=== PATIENT | male | born 1980 | race Caucasian/White ===

== ENCOUNTER → 2018-09-07 | Outpatient (CLI) | payer OTHER ==
[2018-09-07 06:51] LABS: ALANINE AMINOTRANSFERASE 52 U/L (12-78); ANION GAP 6 mmol/L (5-15); CALCIUM 8.5 mg/dL (8.5-10.1); CHLORIDE 108 mmol/L (98-107); CHOLESTEROL, TOTAL 220 mg/dL (140-239); CREATININE 1.14 mg/dL (0.7-1.3)
[2018-09-07 07:02] LABS: ALKALINE PHOSPHATASE 82 U/L (45-117); BILIRUBIN,TOTAL 0.7 mg/dL (0.2-1.0); CHOL/HDL RATIO 5.8; HDL CHOL % 17 % (26-37); HDL CHOLESTEROL (DIRECT) 38 mg/dL (40-60); LDL CHOLESTEROL,CALCULATED 153 mg/dL (54-169); TOTAL PROTEIN 7.4 g/dL (6.4-8.2); TRIGLYCERIDES 145 mg/dL (50-200); VLDL CHOLESTEROL 29 mg/dL (0-25)
== END | disposition home or self-care (01) ==
LOC: LAB 06:18
PROVIDERS: ATTEND Family Medicine
DX: E66.01 Morbid (severe) obesity due to excess calories (principal)
CPT/HCPCS: 36415; 80053; 80061; 84443

== ENCOUNTER → 2018-09-12 | Outpatient (CLI) | payer OTHER | END | disposition home or self-care (01) | LOC: RAD 12:00 | PROVIDERS: ATTEND Family Medicine | DX: M25.572 Pain in left ankle and joints of left foot (principal) ==

== ENCOUNTER 2018-11-15 11:33 | Emergency (ER) | payer OTHER ==
[~2018-11-15] VITALS: Ht 188 cm; Wt 165.3 kg
[2018-11-15 11:59] VITALS: BP 142/81
== END 2018-11-15 13:43 | disposition home or self-care (01) ==
LOC: ED 13:37
DX: R42 Dizziness and giddiness (principal); K21.9 Gastro-esophageal reflux disease without esophagitis
CPT/HCPCS: 36415; 71045; 80048; 82040; 84484; 85025; 93005; 99284

== ENCOUNTER 2019-07-20 01:35 | Emergency (ER) | payer OTHER ==
[~2019-07-20] VITALS: Ht 188 cm; Wt 171.8 kg
[2019-07-20 01:38] VITALS: BP 152/92
--- NOTE | 2019-07-20 01:56 | NUR ---
pt ambulates from triage to room with steady gait. dr. castro at for pt history and assessment.
[2019-07-20 02:22] LABS: BASOPHILS # (AUTO) 0.04 x10^3/uL (0-0.1); BASOPHILS % (AUTO) 1 % (0-1); EOSINOPHILS # (AUTO) 0.25 x10^3/uL (0-0.4); EOSINOPHILS % (AUTO) 3 % (1-7); LYMPHOCYTES # (AUTO) 3.03 x10^3/uL (1-3.4); LYMPHOCYTES % (AUTO) 35 % (22-44); MD NO; MEAN CORPUSCULAR HEMOGLOBIN 30.2 pg (27.5-34.5); MEAN CORPUSCULAR VOLUME 91.4 fL (81-97); MEAN PLATELET VOLUME 9.8 fL (7.4-10.4); MONOCYTES # (AUTO) 0.82 x10^3/uL (0.2-0.8); MONOCYTES % (AUTO) 10 % (2-9); NEUTROPHILS % (AUTO) 52 % (42-75); PLATELET COUNT 251 x10^3/uL (130-400); RED BLOOD COUNT 5.07 x10^6/uL (4.38-5.82)
[2019-07-20 02:36] LABS: ALANINE AMINOTRANSFERASE 59 U/L (12-78); ALBUMIN 3.8 g/dL (3.4-5.0); ANION GAP 7 mmol/L (5-15); CALCIUM 8.8 mg/dL (8.5-10.1); CHLORIDE 106 mmol/L (98-107); CREATININE 1.21 mg/dL (0.7-1.3)
[2019-07-20 02:40] LABS: ALKALINE PHOSPHATASE 92 U/L (45-117); BILIRUBIN,TOTAL 0.3 mg/dL (0.2-1.0); TOTAL PROTEIN 7.6 g/dL (6.4-8.2); TROPONIN I < 0.015 ng/mL (0.000-0.045)
--- NOTE | 2019-07-20 03:13 | NUR ---
pt d/c with d/c summary and work note. pt verbalizes understanding of f/u instructions and homecare. pt denies any other needs pertaining to this visit. pt ambulates to registration desk with steady gait for d/c home.
[2019-07-20] MEDS ORDERED: FAMO40TA61 PO (10:28)
== END 2019-07-20 03:15 ==
LOC: ED 02:50
DX: R07.89 Other chest pain (principal); R00.2 Palpitations; K21.9 Gastro-esophageal reflux disease without esophagitis
CPT/HCPCS: 36415; 71045; 80053; 84484; 85025; 93005; 99285

== ENCOUNTER 2019-07-20 10:20 | Emergency (ER) | payer OTHER ==
[~2019-07-20] VITALS: Ht 188 cm; Wt 171.1 kg
[2019-07-20] MEDS ORDERED: FAMO40TA61 PO (10:28)
--- NOTE | 2019-07-20 11:02 | NUR ---
Pt states "pounding heartbeat" when lying flat. Pts its resolved when sitting. Pt seen here this am for the same. Pt placed on monitors, denies any cirrent CP. ERMD at bedside for assessment.
[2019-07-20 11:24] LABS: TROPONIN I < 0.015 ng/mL (0.000-0.045)
--- NOTE | 2019-07-20 11:51 | NUR ---
Pt resting in bed, remains on monitors. Awaiting all lab results. Cont to monitor.
--- NOTE | 2019-07-20 12:07 | NUR ---
Lunch RN: Pt resting in bed. reports he feels fine but when he lays down he feels his chest starts to pound and feels palpitations.
[2019-07-20 12:26] VITALS: BP 159/97
--- NOTE | 2019-07-20 12:40 | NUR ---
Patient/Caregiver given discharge instructions and they have confirmed that they understand the instructions. Patient ambulatory with steady gait.
== END 2019-07-20 12:42 | disposition home or self-care (01) ==
LOC: ED 11:04
DX: R07.89 Other chest pain (principal); R42 Dizziness and giddiness; R06.00 Dyspnea, unspecified; Z87.891 Personal history of nicotine dependence
CPT/HCPCS: 36415; 83880; 84484; 85379; 99283

== ENCOUNTER 2019-07-20 21:05 | Emergency (ER) | payer OTHER ==
[~2019-07-20] VITALS: Ht 188 cm; Wt 170.0 kg
[~2019-07-20 21:05] MED LIST: FAMO40TA61 PO
[2019-07-20] MEDS ORDERED: ONDANSETRON ODT 4 MG ONE (21:43)
[2019-07-20] MEDS ORDERED: ONDANSETRON ODT 4 MG PO ONE (22:00)
[2019-07-20 22:53] VITALS: BP 133/72
== END 2019-07-20 23:02 | disposition home or self-care (01) ==
LOC: ED 22:15
DX: R10.13 Epigastric pain (principal); R10.10 Upper abdominal pain, unspecified; R07.89 Other chest pain; R11.2 Nausea with vomiting, unspecified; R00.2 Palpitations; Z87.891 Personal history of nicotine dependence
CPT/HCPCS: 74021; 93005; 99283; Q0162

== ENCOUNTER 2019-07-23 05:40 | Outpatient (CLI) | payer OTHER ==
[2019-07-23 06:10] LABS: BASOPHILS # (AUTO) 0.03 x10^3/uL (0-0.1); BASOPHILS % (AUTO) 0 % (0-1); EOSINOPHILS # (AUTO) 0.22 x10^3/uL (0-0.4); EOSINOPHILS % (AUTO) 3 % (1-7); LYMPHOCYTES # (AUTO) 2.67 x10^3/uL (1-3.4); LYMPHOCYTES % (AUTO) 36 % (22-44); MD NO; MEAN CORPUSCULAR HEMOGLOBIN 30.3 pg (27.5-34.5); MEAN CORPUSCULAR HGB CONC 33.4 g/dL (33.2-36.2); MEAN CORPUSCULAR VOLUME 90.7 fL (81-97); MEAN PLATELET VOLUME 9.7 fL (7.4-10.4); MONOCYTES # (AUTO) 0.66 x10^3/uL (0.2-0.8); MONOCYTES % (AUTO) 9 % (2-9); NEUTROPHILS # (AUTO) 3.95 x10^3/uL (1.8-6.8); NEUTROPHILS % (AUTO) 53 % (42-75); PLATELET COUNT 239 x10^3/uL (130-400); RED CELL DISTRIBUTION WIDTH 13.7 % (9.4-14.8)
[2019-07-23 06:20] LABS: ALANINE AMINOTRANSFERASE 62 U/L (12-78); ANION GAP 6 mmol/L (5-15); CALCIUM 8.8 mg/dL (8.5-10.1); CHLORIDE 107 mmol/L (98-107)
[2019-07-23 06:45] LABS: ALKALINE PHOSPHATASE 97 U/L (45-117); BILIRUBIN,TOTAL 0.4 mg/dL (0.2-1.0); CHOL/HDL RATIO 4.6; CHOLESTEROL, TOTAL 206 mg/dL (140-239); CREATININE 1.09 mg/dL (0.7-1.3); FOLATE LEVEL 15.4 ng/mL (3.1-17.5); HDL CHOL % 22 % (26-37); HDL CHOLESTEROL (DIRECT) 45 mg/dL (40-60); LDL CHOLESTEROL,CALCULATED 140 mg/dL (54-169); LDL/HDL RATIO 3.1 (0.5-3.0); TRIGLYCERIDES 104 mg/dL (50-200); VLDL CHOLESTEROL 21 mg/dL (0-25)
== END 2019-07-23 23:59 | disposition home or self-care (01) ==
LOC: LAB 05:40
PROVIDERS: ATTEND Nurse Practitioner
DX: K21.9 Gastro-esophageal reflux disease without esophagitis (principal); E66.01 Morbid (severe) obesity due to excess calories; G47.33 Obstructive sleep apnea (adult) (pediatric); R00.2 Palpitations
CPT/HCPCS: 36415; 80053; 80061; 82306; 82607; 82746; 84403; 84443; 85025

== ENCOUNTER 2019-07-23 15:41 | Emergency (ER) | payer OTHER ==
[~2019-07-23] VITALS: Ht 188 cm; Wt 166.0 kg
[2019-07-23] MEDS ORDERED: CYCLOBENZAPRINE 10 MG TABLET ONE (16:15)
[2019-07-23] MEDS ORDERED: KETOROLAC 30 MG/1 ML ONE (16:16)
[2019-07-23] MEDS ORDERED: KETOROLAC 30 MG/1 ML IM ONE (16:30)
[2019-07-23] MEDS ORDERED: CYCLOBENZAPRINE 10 MG TABLET PO ONE (16:30)
[2019-07-23 17:07] LABS: BASOPHILS # (AUTO) 0.04 x10^3/uL (0-0.1); BASOPHILS % (AUTO) 1 % (0-1); EOSINOPHILS # (AUTO) 0.18 x10^3/uL (0-0.4); EOSINOPHILS % (AUTO) 2 % (1-7); LYMPHOCYTES # (AUTO) 3.34 x10^3/uL (1-3.4); LYMPHOCYTES % (AUTO) 37 % (22-44); MD NO; MEAN CORPUSCULAR HEMOGLOBIN 30.2 pg (27.5-34.5); MEAN CORPUSCULAR HGB CONC 33.2 g/dL (33.2-36.2); MEAN CORPUSCULAR VOLUME 90.9 fL (81-97); MEAN PLATELET VOLUME 9.5 fL (7.4-10.4); MONOCYTES # (AUTO) 0.86 x10^3/uL (0.2-0.8); MONOCYTES % (AUTO) 9 % (2-9); NEUTROPHILS # (AUTO) 4.72 x10^3/uL (1.8-6.8); NEUTROPHILS % (AUTO) 52 % (42-75); PLATELET COUNT 250 x10^3/uL (130-400); RED BLOOD COUNT 5.31 x10^6/uL (4.38-5.82)
--- NOTE | 2019-07-23 17:11 | NUR ---
PT RESTING IN BED. CALL LIGHT IN REACH.
[2019-07-23 17:16] LABS: ALANINE AMINOTRANSFERASE 65 U/L (12-78); ALBUMIN 4.1 g/dL (3.4-5.0); ANION GAP 5 mmol/L (5-15); CALCIUM 9.3 mg/dL (8.5-10.1); CHLORIDE 108 mmol/L (98-107); CREATININE 1.03 mg/dL (0.7-1.3)
[2019-07-23 17:21] LABS: ALKALINE PHOSPHATASE 99 U/L (45-117); BILIRUBIN,TOTAL 0.2 mg/dL (0.2-1.0); TOTAL PROTEIN 8.3 g/dL (6.4-8.2); TROPONIN I < 0.015 ng/mL (0.000-0.045)
[2019-07-23 17:28] VITALS: BP 144/86
--- NOTE | 2019-07-23 17:48 | NUR ---
JESSE RODRIGUEZ AT BEDSIDE TO DISCUSS POC. DISCHARGE INSATRUCTIONS REVIEWED.
== END 2019-07-23 18:28 | disposition home or self-care (01) ==
LOC: ED 16:11
DX: S29.012A Strain of muscle and tendon of back wall of thorax, initial encounter (principal); R07.2 Precordial pain; R42 Dizziness and giddiness; R00.0 Tachycardia, unspecified; E66.01 Morbid (severe) obesity due to excess calories; Z68.42 Body mass index [BMI] 45.0-49.9, adult; Z87.891 Personal history of nicotine dependence; X58.XXXA Exposure to other specified factors, initial encounter; Y93.89 Activity, other specified; Y92.89 Other specified places as the place of occurrence of the external cause; Y99.8 Other external cause status
CPT/HCPCS: 36415; 71045; 80053; 84484; 85025; 85379; 93005; 96372; 99285; J1885

== ENCOUNTER → 2019-07-27 | Outpatient (CLI) | payer OTHER | END | disposition home or self-care (01) | LOC: RAD 10:43 | PROVIDERS: ATTEND Internal Medicine Cardiovascular Disease | DX: R07.9 Chest pain, unspecified (principal) | CPT/HCPCS: 78452; 93017; A9502 ==

== ENCOUNTER → 2019-08-04 | Outpatient (CLI) | payer OTHER | END | disposition home or self-care (01) | LOC: LAB 09:31 | PROVIDERS: ATTEND Internal Medicine Cardiovascular Disease | DX: E66.01 Morbid (severe) obesity due to excess calories (principal); R73.9 Hyperglycemia, unspecified | CPT/HCPCS: 36415; 83036 ==

== ENCOUNTER 2019-12-18 06:27 | Emergency (ER) | payer OTHER ==
[~2019-12-18] VITALS: Ht 188 cm; Wt 175.0 kg
[2019-12-18] MEDS ORDERED: SODIUM CHLORIDE FLUSH 10ML SYR IVF ONE (07:30)
[2019-12-18 07:57] LABS: BASOPHILS # (AUTO) 0.03 x10^3/uL (0-0.1); BASOPHILS % (AUTO) 0 % (0-1); EOSINOPHILS # (AUTO) 0.13 x10^3/uL (0-0.4); EOSINOPHILS % (AUTO) 2 % (1-7); LYMPHOCYTES # (AUTO) 2.47 x10^3/uL (1-3.4); LYMPHOCYTES % (AUTO) 30 % (22-44); MD NO; MEAN CORPUSCULAR HEMOGLOBIN 29.9 pg (27.5-34.5); MEAN CORPUSCULAR HGB CONC 32.9 g/dL (33.2-36.2); MEAN CORPUSCULAR VOLUME 90.9 fL (81-97); MEAN PLATELET VOLUME 9.4 fL (7.4-10.4); MONOCYTES # (AUTO) 0.64 x10^3/uL (0.2-0.8); MONOCYTES % (AUTO) 8 % (2-9); NEUTROPHILS % (AUTO) 60 % (42-75); PLATELET COUNT 251 x10^3/uL (130-400); RED BLOOD COUNT 5.36 x10^6/uL (4.38-5.82); RED CELL DISTRIBUTION WIDTH 13.8 % (9.4-14.8)
[2019-12-18 08:08] LABS: ALANINE AMINOTRANSFERASE 50 U/L (12-78); ALBUMIN 4.1 g/dL (3.4-5.0); ANION GAP 8 mmol/L (5-15); CALCIUM 9.3 mg/dL (8.5-10.1); CHLORIDE 104 mmol/L (98-107)
[2019-12-18 08:12] LABS: ALKALINE PHOSPHATASE 101 U/L (45-117); BILIRUBIN,TOTAL 0.4 mg/dL (0.2-1.0); TOTAL PROTEIN 8.3 g/dL (6.4-8.2); TROPONIN I < 0.015 ng/mL (0.000-0.045)
--- NOTE | 2019-12-18 08:27 | NUR ---
pt ambulate to [facility] for esophogram at this time
--- NOTE | 2019-12-18 08:29 | NUR ---
report from grace menendez. as
--- NOTE | 2019-12-18 09:15 | NUR ---
back in room npo til esophagram results aware. vss. nad. call jamee. as
[2019-12-18 09:16] VITALS: BP 143/93
== END 2019-12-18 10:01 | disposition home or self-care (01) ==
LOC: ED 08:55
DX: K21.9 Gastro-esophageal reflux disease without esophagitis (principal); R00.2 Palpitations; J02.9 Acute pharyngitis, unspecified; R07.89 Other chest pain; R94.31 Abnormal electrocardiogram [ECG] [EKG]; R13.10 Dysphagia, unspecified; E66.01 Morbid (severe) obesity due to excess calories; Z68.42 Body mass index [BMI] 45.0-49.9, adult
CPT/HCPCS: 36415; 70360; 71045; 74220; 80053; 84484; 85025; 93005; 99285

== ENCOUNTER 2020-02-19 00:24 | Emergency (ER) | payer OTHER ==
[~2020-02-19] VITALS: Ht 188 cm; Wt 150.0 kg
[2020-02-19] MEDS ORDERED: DIAZEPAM 5 MG TABLET ONE (00:53)
[2020-02-19] MEDS ORDERED: DIAZEPAM 5 MG TABLET PO ONE (01:00)
--- NOTE | 2020-02-19 01:12 | NUR ---
PT HERE FOR LOW BACK PAIN THAT RADIATES DOWN BOTH LEGS. PT MEDICATED. WILL CONTINUE TO MONITOR
--- NOTE | 2020-02-19 01:21 | NUR ---
PT TO XRAY
[2020-02-19] MEDS ORDERED: HYDROmorphone 1 MG/ML, 1ML INJ IM ONE (02:00)
[2020-02-19] MEDS ORDERED: HYDROmorphone 1 MG/ML, 1ML INJ ONE (02:02)
[2020-02-19 03:17] VITALS: BP 152/78
--- NOTE | 2020-02-19 03:18 | NUR ---
Patient given discharge instructions and they have confirmed that they understand the instructions. Patient taken out by wheelchair.
== END 2020-02-19 03:20 | disposition home or self-care (01) ==
LOC: ED 01:39
DX: M48.07 Spinal stenosis, lumbosacral region (principal); M54.42 Lumbago with sciatica, left side; M54.41 Lumbago with sciatica, right side
CPT/HCPCS: 72110; 96372; 99283; J1170; J7512

== ENCOUNTER → 2020-03-02 | Outpatient (CLI) | payer OTHER ==
[2020-03-02 10:57] LABS: BASOPHILS % (AUTO) 1 % (0-1); EOSINOPHILS % (AUTO) 2 % (1-7); LYMPHOCYTES % (AUTO) 33 % (22-44); MEAN CORPUSCULAR HEMOGLOBIN 30.6 pg (27.5-34.5); MEAN CORPUSCULAR HGB CONC 33.7 g/dL (33.2-36.2); MEAN PLATELET VOLUME 9.6 fL (7.4-10.4); MONOCYTES % (AUTO) 8 % (2-9); NEUTROPHILS % (AUTO) 56 % (42-75); PLATELET COUNT 234 x10^3/uL (130-400); RED BLOOD COUNT 5.08 x10^6/uL (4.38-5.82); RED CELL DISTRIBUTION WIDTH 13.7 % (9.4-14.8)
[2020-03-02 11:09] LABS: MD NO
== END | disposition home or self-care (01) ==
LOC: LAB 10:36
PROVIDERS: ATTEND Internal Medicine
DX: K21.9 Gastro-esophageal reflux disease without esophagitis (principal); R13.10 Dysphagia, unspecified
CPT/HCPCS: 36415; 82947; 82950; 83036; 85025

== ENCOUNTER → 2020-03-06 | Outpatient (CLI) | payer OTHER | END | disposition home or self-care (01) | LOC: RAD 15:02 | PROVIDERS: ATTEND Internal Medicine | DX: K76.0 Fatty (change of) liver, not elsewhere classified (principal) | CPT/HCPCS: 76700 ==

== ENCOUNTER → 2020-03-15 | Outpatient (CLI) | payer OTHER | END | disposition home or self-care (01) | LOC: STAR 09:04 | PROVIDERS: ATTEND Anesthesiology | DX: Z20.828 Contact with and (suspected) exposure to other viral communicable diseases (principal) | CPT/HCPCS: 87635 ==

== ENCOUNTER 2020-03-21 08:05 | Day surgery (SDC) | payer OTHER ==
[~2020-03-21] VITALS: Ht 188 cm; Wt 175.0 kg
[2020-03-21] MEDS ORDERED: CHLORHEXIDINE 15 ML UDC MM ONE (08:30)
[2020-03-21] MEDS ORDERED: LACTATED RINGERS 1,000 ML IV SCH (08:30)
[2020-03-21] MEDS ORDERED: LIDOCAINE-MPF 1%, 2ML INFIL ONE (08:30)
[2020-03-21] MEDS ORDERED: VITAMIN d PO (08:33)
[2020-03-21] MEDS ORDERED: OMEP-110 PO (08:33)
[2020-03-21 08:35] VITALS: BP 156/96
[2020-03-21] MEDS ORDERED: FENTANYL PF 100 MCG/2ML ONE (08:36)
[2020-03-21] MEDS ORDERED: MIDAZOLAM 1 MG/ML, 2ML ONE (08:37)
[2020-03-21] MEDS ORDERED: PROPOFOL 10 MG/ML, 50ML ONE (08:59)
== END 2020-03-21 09:55 | disposition home or self-care (01) ==
LOC: OUT 08:05
PROVIDERS: ATTEND Internal Medicine Geriatric Medicine
DX: K21.9 Gastro-esophageal reflux disease without esophagitis (principal); R13.12 Dysphagia, oropharyngeal phase; K29.50 Unspecified chronic gastritis without bleeding; K75.81 Nonalcoholic steatohepatitis (NASH); G47.33 Obstructive sleep apnea (adult) (pediatric); E66.01 Morbid (severe) obesity due to excess calories; Z68.42 Body mass index [BMI] 45.0-49.9, adult; Z79.899 Other long term (current) drug therapy; Z87.891 Personal history of nicotine dependence
CPT/HCPCS: 43239; 88305; J2250; J2704; J3010; J7120